=== PATIENT | female | born 1965 | race Two or more races ===

== ENCOUNTER → 2018-08-30 16:22 | Outpatient (CLI) | payer BC, SELFPAY ==
[2018-09-03 13:21] LABS: HPV Reflexed? NOT INDICATED
--- OUTSIDE RECORDS SUMMARY | 2018-11-04 11:51 | XMS RPT_ITS ---
:1965 Author Organization OHIP Care Team Providers Name Role Phone Mariya Vasquez Attending Unavailable Blaine Butler Referring Unavailable Blaine Butler Primary Care Unavailable CATERINA VILLA Referring Unavailable PROVIDER, UNKNOWN Admitting Unavailable PROVIDER, UNKNOWN Attending Unavailable BLAINE BUTLER Primary Care Unavailable PROVIDER, UNKNOWN Admitting Unavailable PROVIDER, UNKNOWN Attending Unavailable BLAINE BUTLER Primary Care Unavailable Mariya Vasquez Attending Unavailable Mariya Vasquez Referring Unavailable PROBLEMS PROBLEMS DATE TYPE CONDITION / ATTENDING STATUS SOURCE CODE 08/30/2018 Unknown Z12.4 - Mariya Vasquez Active [place] Encounter for Community screening for Hospital malignant Repository neoplasm of cervix / Z12.4(ICD-10) 05/31/2018 Active Unknown / NA Active [facility] UNK(Unknown) Other [facility] Repository 10/04/2017 Admitting Encntr screen Mariya Vasquez Active [facility] Diagnosis mammogram for System malignant Repository neoplasm of breast / Z12.31(ICD-10) PROCEDURES PROCEDURES No Procedure Records FoundRESULTS RESULTS PAP I-G W/RFX HRHPV Collected: 08/30/2018 Status: F Source: [facility] 10:45 [facility] Order Comment: CYTOLOGY INFORMATION: - CLINICAL INFORMATION: - DATE LMP/MENOPAUSE: 06/28/18 LMP - COLLECTION VIAL: Thin Prep Vial - ORTHODONTIST VICE PRESIDENT SOURCE: CERVICAL/ENDOCERVICAL - COLLECTION TECHNIQUE: BRUSH/SPATULA Specimen Comment: [id number] Specimen Comment: Source.............Cervix;Endocervix Specimen Comment: LMP / Prev Treat...[id number] Specimen Comment: No. of containers..01 ThinPrep Vial TYPE CODE TESTS RESULT OUT OF RANGE REFERENCE UNITS LAB L7400.0800 . Normal DIAGN Comment Result Comment: NEGATIVE FOR INTRAEPITHELIAL LESION OR MALIGNANCY. LAB L7400.0900 . Normal ADEQ Comment Result Comment: Satisfactory for evaluation. Endocervical and/or squamous metaplastic cells (endocervical component) are present. LAB L7400.1400 . Normal PERFORM Comment Result Comment: Emmie Earl, Nursing Educator LAB L7400.2575 . Normal TEST METHOD Comment Result Comment: This liquid based ThinPrep(R) pap test was screened with the use of an image guided system. LAB L7400.2600 . Normal . COMM LAB L7400.2700 . Normal PAPSMR Comment Result Comment: The Pap smear is a screening test designed to aid in the detection of premalignant and malignant conditions of the uterine cervix. It is not a diagnostic procedure and should not be used as the sole means of detecting cervical cancer. Both false-positive and false-negative reports do occur. LAB L7400.2800 . Normal HPV RFLX Comment Result Comment: The HPV DNA reflex criteria were not met with this specimen result therefore, no HPV testing was performed. Performed at: [address] [id number] [place] Repairer: Karen Guadalupe MD, Phone: [phone] Performed By: #### L7400.0350 #### [facility] (refer to report for specific site) refer to report for address and phone number XR ASP/INJ HIP Observed: 05/31/2018 Status: F Source: YUSUF MCKENZIE/VERA JARVIS 9:02 AM CLINIC OTHER CAMPUS REPOSITORY * * *Final Report* * * DATE OF EXAM: May 31 2018 9:02AM MDX 5715 - XR ASP/INJ HIP MAGALY/VERA JARVIS / PROCEDURE REASON: arthritis left hip M19.90 * * * * Physician Interpretation * * * * HISTORY: Left hip pain, osteoarthritis TECHNIQUE: Pre-procedure Sign-in: Safety Checklist Performed: Yes. The team confirmed the correct patient, correct site, site marking, correct procedure, and correct position. Timeout Time: 8:30 Sign-out: Communication performed: Yes. Fluoroscopic Radiation Summary: Plane A, Air Kerma: 7.0 mGy Dose Area Product (DAP): 1385.0 mGy*cmS2 Fluoro time: 0:18 min:sec COMPARISON: None RESULT: 22-gauge spinal needle tip was placed into the synovial space of the left hip under guidance of fluoroscopy, verified by injection of a small amount of Omnipaque 240 contrast material, recorded on permanent radiographs. 2 mL of 0.25% bupivacaine and 2 mL of Kenalog were injected. IMPRESSION: Left hip injection. Relief Map Modeler: PSCB Transcribe Date/Time: May 31 2018 12:52P Dictated by : EMILI TAYLOR MD This examination was interpreted and the report reviewed and electronically signed by: EMILI TAYLOR MD on May 31 2018 12:54PM EST [id number] MG BREAST TOMOSYNTHESIS Observed: 10/04/2017 Status: F Source: [facility] BL 12:00 AM SYSTEM REPOSITORY Patient Name: KARSTEN CONNOLLY Mammography Exam Date/Time 10/04/2017 08:45:30 EST Exam MG Breast Tomosynthesis BI Scr Ordering Physician MD VASQUEZ ANNE M Accession Number [id number] CPT4 Codes 97457 (MG Breast Tomosynthesis Scr Bl), 41358 (MG MAMMO 2D SCREENING) Reason For Exam screening Report PATIENT HISTORY: Patient has history of nonmelanoma skin cancer at age 41 and had first child at age 35. Family history of prostate cancer at age 70 in father. Took hormonal contraceptives for 20 years. Patient has never smoked. Patient's BMI is 28.1. TIME SINCE LAST MAMMOGRAM: Last mammogram was performed 1 year and 3 months ago. REASON FOR EXAM: screening, asymptomatic. PROCEDURE: MG BREAST TOMOSYNTHESIS BL SCR: OCTOBER 04, 2017 - 2D/3D Procedure 3D Bilateral CC and MLO view(s) were taken. 2D Bilateral CC and MLO view(s) were taken. Prior study comparison: June 21, 2016, bilateral screening mammogram performed at [facility]. April 24, 2015, bilateral screening mammogram performed at [facility]. There are scattered fibroglandular densities. No suspicious masses, architectural distortions or suspiciously clustered microcalcifications are identified within the right or left breast. There is no evidence of skin thickening or nipple retraction. There are no significant changes when compared with prior studies. Markings on images: BB's = Nipples; skin lesions Open [place] = Palpable Line = Scar 2D digital mammography and tomosynthesis imaging were performed and reviewed with CAD. ASSESSMENT: Category 1 Negative No mammographic evidence of malignancy. RECOMMENDATION: Routine screening mammogram of both breasts in 1 year. Cancer Risk Assessment: This risk assessment is based on patient provided information collected in a risk survey taken at the time of this examination. 5 year breast cancer risk is 2.1% - if greater than or equal to 1.7%, recommend discussion regarding the significance of these results and options for possible risk reduction. Lifetime breast cancer risk: 17.3% - If greater than or equal to 20%, consider annual mammogram and annual screening Breast MRI or follow up in high risk clinic. Is the patient at elevated risk based on the HBOC criteria? No (Hereditary Breast and Ovarian Cancer) - If yes, consider genetic counseling and testing with high risk follow up. HNPCC mutation risk (Joaquin Syndrome): 1% - if greater than or equal to 5%, consider genetic counseling, testing and screening colonoscopy. Final Signed Date and Time: 10/04/2017 12:20 pm Signed by: DO KHANNA ALFRED ALLERGIES ALLERGIES DATE TYPE / CODE NAME / CODE REACTION SEVERITY SOURCE Drug NO KNOWN [facility] Class/24592 ALLERGIES Other [facility] 1003(SNOMED Repository CT) ENCOUNTERS ENCOUNTERS ADMIT/DISCHARGE ACCOUNT NUMBER ADMITTING ENCOUNTER LOCATION SOURCE CLASS 08/30/2018 [id number] Ambulatory [facility] ding:LABSPEC Repository 06/14/2018/06/14/20 [id number] Unknown [facility] Repository 05/31/2018 [id number] Ambulatory [facility] Repository 03/13/2018/03/13/20 [id number] Unknown [facility] Repository 10/04/2017 [id number] Ambulatory [facility] System Repository PAYERS PAYERS ENCOUNTER GUARANTOR PAYER SUBSCRIBER SOURCE 08/30/2018 [facility] MAXWELLD[facility] y Number: [id number] Repository [place] [id number]: . Date:[id number] [address] () [address], [place] [address]LJ: 08/30/2018 [facility]SELF [facility]Y Hospital INSURANCEPolicy Repository Number: Effective Date:2018-08-30 06/14/2018 [facility] MAXWELLDOB: Insurance:BLUE MAXWELLDOB: System Repository CROSS/O,PPO,POSPoli [id number] [facility] cy Number: [place] [id number] [place] [address]Wzs: (330) Date:2016-08-14 04763 [phone] () 03/13/2018 [facility] MAXWELLDOB: Insurance:BLUE MAXWELLDOB: System Repository CROSS/HMO,PPO,POSPoli [id number] [facility] cy Number: [place] [id number] [place] [address]Jwy: (330) Date:2016-08-14 15811 [phone] () 10/04/2017 [facility] MaxwellDOB: Insurance:[place] Blue MaxwellDOB: System Repository [facility] [id number] [facility] ShieldPolickaren Number: ANABELLE Horner Effective Date: [address]Ypz: ()
--- OUTSIDE RECORDS SUMMARY | 2018-11-04 11:51 | XMS RPT_ITS ---
:1965 Author Organization [employer] Address [facility] [place] [address] Phone Care Team Providers Name Role Phone Marta BROWN, Edd Gregorio Reason for Visit Reason For Visit Description Start Date New - 1st visit with practice Preliminary reason for visit data, not yet signed by the author as of left hip pain Preliminary reason for visit data, not yet signed by the author as of Chief Complaint Chief Complaint Description Start Date left hip pain Preliminary chief complaint data, not yet signed by the author as of Instructions Instruction Description Start Date Patient advised to follow-up with Primary Care Physician for BMI management. Plan of Care Type Date Detail Appointment 09:30 AM Edd Lozano MD, [address] [facility], [place], [address], Pending order XR PELVIS W HIP 1 VIEW-LT Pending order Intra-articular Left Hip injection under Fluoro Medications Medication Instructions Start Stop Generic Name NDC Provider Date Date ADVIL 200 MG 2 tablets as / IBUPROFEN 32618312335 Erica Pulido TABS needed for pain 07 EDGE BANDER OPERATOR ALPRAZOLAM 1 1 tablet daily / ALPRAZOLAM 87544967145 Erica Pulido MG TABS as needed 20 EDGE BANDER OPERATOR STRATTERA 40 1 capsule daily / ATOMOXETINE HCL 01280231949 Erica Pulido MG CAPS 20 EDGE BANDER OPERATOR LEXAPRO 20 MG 1 tablet daily / ESCITALOPRAM 44096297992 Erica Pulido TABS 19 OXALATE EDGE BANDER OPERATOR TRAMADOL HCL 1 tablet every 6 / TRAMADOL HCL 79380596980 Erica Pulido 50 MG TABS hours as needed 01 EDGE BANDER OPERATOR ZORVOLEX 35 MG 1 capsule up to 96247286225 Erica Pulido CAPS three times 01 EDGE BANDER OPERATOR daily Conditions or Problems Problem Name Problem Onset Status Entry Provider Comment Standard Annotate Code Date Date Description Cervical 17093312 Active Mona Myles Cervical left upper radiculopathy (SNOMED 04/04 04/[address] [place] [address]) PA-C Risk for 391957717 Active Edd Vasquez At risk for falls (SNOMED 05/[address]) Herniated 278495863 Active Edd Vasquez Prolapsed cervical disc (SNOMED 04/25 04/[address]) intervertebral disc without myelopathy Degenerative 70396320 Active Edd Vasquez Degeneration of cervical disc (SNOMED 04/25 04/[address]) intervertebral disc Impingement 643120422 Active Edd Vasquez Impingement syndrome, (SNOMED 04/04 04/04 [place] syndrome of shoulder, CT) shoulder region left Obesity 735007164 Active Edd Vasuqez Obesity (SNOMED 09/07 09/[address]) 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 Edd Vasquez 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 (SNOMED 09/05 09/[address] [place] [address]) Lumbar disc 995197349 Active Edd Vasquez Lumbar disc herniation (SNOMED 09/05 09/05 [place] prolapse with with CT) radiculopathy radiculopathy Arthritis of 00253275 Active Edd Vasquez Arthritis of hip left hip (SNOMED 09/05 09/[address]) Allergies, Adverse Reactions, Alerts Observed no known allergies at Social History Concept Description Observation Name Observation Value Units Start Date Employment detail OCCUPATION#1 Video Production Assistant Preliminary social history data, not yet signed by the author as of Vital Signs Date Name Value Unit Description BMI (Body Mass 27.54 kg/m2 Body Mass Index Index) [Ratio] Preliminary vital sign data, not yet signed by the author as of BP Diastolic 84 mm[Hg] blood pressure, diastolic Preliminary vital sign data, not yet signed by the author as of BP Systolic 120 mm[Hg] blood pressure, systolic Preliminary vital sign data, not yet signed by the author as of Heart Rate 84 /min pulse rate E&M Preliminary vital sign data, not yet signed by the author as of Height 66 [in_us] height E&M Preliminary vital sign data, not yet signed by the author as of Height 168 cm height in centimeters E&M Preliminary vital sign data, not yet signed by the author as of Weight Measured 170 [lb_av] weight E&M Preliminary vital sign data, not yet signed by the author as of Weight Measured 77 kg weight in kilograms E&M Preliminary vital sign data, not yet signed by the author as of Results Date Name Value Unit Range Flag Description Office Visit: New - 1st visit with practice, Rm: 7 MEDS REVIEW Done Documentation of current medications (procedure) Preliminary observation data, not yet signed by the author as of Preliminary observation data, not yet signed by the author as of Clinical Summary: Scanned ROS Summary ROS: Denies genitourinary review of systems, E&M ROS: GI Denies ROS gastrointestinal E&M ROS ENDO Denies endocrine ROS ROS MSK COMM Pain,Arthritis ROS Musculoskeletal comments ROS:MUSCSKEL Complains ROS musculoskeletal E&M ROS: PSYCH Denies ROS psychiatric E&M ROS HEME Denies ROS hematologic/lymphatic E&M ROS SKIN Denies ROS skin E&M ROS ENT Denies ROS ENT E&M ROS:GENERAL Denies ROS general E&M ROS: NEURO Denies ROS neurological E&M ROS:PULMON Denies ROS pulmonary E&M ROS: CARDIAC Denies ROS cardiovascular E&M Clinical Summary: HMSPatientID OOP account number Procedures Code Procedure Name Date Entry Date G8730 Pain assessment documented as positive - follow-up documented G8427 Current medications documented 1036F Tobacco screening was negative - non user G8417 BMI documented as above normal parameters - follow-up documented G8783 Blood pressure within normal parameters - no follow-up required [facility]-[id number] Patient Encounter Medications Administered No information available. Immunizations No information available. Advance Directives There may be information available, but it has not been provided by the sender. Assessments There may be information available, but it has not been provided by the sender. Review of Systems There may be information available, but it has not been provided by the sender. Family History There may be information available, but it has not been provided by the sender. History of Past Illness There may be information available, but it has not been provided by the sender. History of Present Illness There may be information available, but it has not been provided by the sender.
--- OUTSIDE RECORDS SUMMARY | 2018-11-04 11:51 | XMS RPT_ITS ---
:04/30/1949 Author Organization [employer] Address [address] [place] [address] A[place]BELLE ALARCON [address] Phone Care Team Providers Name Role Phone Teja To MD Reason for Visit Reason For Visit Description Start Date Postop - subsequent visit Preliminary reason for visit data, not yet signed by the author as of right shoulder post Removal of long stem fracture reverse placement of a custom antibiotic hemiarthroplasty spacer with gentamicin and vancomycin on 10/16/2017 Preliminary reason for visit data, not yet signed by the author as of Chief Complaint Chief Complaint Description Start Date right shoulder post Removal of long stem fracture reverse placement of a custom antibiotic hemiarthroplasty spacer with gentamicin and vancomycin on 10/16/2017 Preliminary chief complaint data, not yet signed by the author as of Instructions Instruction Description Start Date Please follow-up with Primary Care Physician or [employer] for treatment or adjustment of medication regarding elevated blood pressure.Patient advised to follow-up with Primary Care Physician for BMI management. Plan of Care Type Date Detail Appointment 10:45 AM Teja To MD, [address] [place] [address], [email or web address], [place], [address], Appointment 10:15 AM Teja To MD, [address] [place] [address], [email or web address], [place], [address], Appointment 10:45 AM Teja To MD, [facility], [email or web address], [place], [address], Pending order XR HUMERUS 2+ VWS-RT Patient education \cps-sql1\CPS_PtEducation\ht n.pdf Medications Medication Instructions Start Stop Generic Name NDC Provider Date Date ULTRAM 50 MG Take 1-2 / TRAMADOL HCL 88140882683 Teja R TABS tablets by 17 Yousuf BROWN mouth every 4 hours as needed for pain ASPIRIN 81 MG twice daily / ASPIRIN 09421112769 Edith TABS 14 Czyzyk PA-C PERCOCET 5-325 One every six / OXYCODONE-ACETAMI 39703052296 Edith MG TABS hours 14 NOPHEN Boubacar PA-C VITAMIN D3 47896 Take 1 capsule / CHOLECALCIFEROL 40349622041 Edith UNIT CAPS by mouth daily 14 Czyzwaldo for 5 days. EDITH-C Then take 1 capsule by mouth per week for 5 weeks LISINOPRIL-HYDRO takes one / LISINOPRIL-HYDROC 22771197640 Teja Vasquez CHLOROTHIAZIDE tablet daily 15 HLOROTHIAZIDE Yousuf BROWN 20-12.5 MG TABS ATENOLOL 25 MG takes 1 tablet / ATENOLOL 79145496029 Teja R TABS once a day 10 Yousuf BROWN IBUPROFEN 800 MG takes 1 tablet / IBUPROFEN 57618489526 Teja Vasquez TABS up to twice a 10 Yousuf BROWN day REQUIP 0.5 MG takes one / ROPINIROLE HCL 75254819260 Teja R TABS tablet at night 15 Yousuf BROWN BIOTIN 24966 MCG takes 1 tablet / BIOTIN 53248004486 Erica TABS once a day 10 Pulido SOLAR DEVELOPMENT ENGINEER LEVOTHYROXINE takes 1 tablet / LEVOTHYROXINE 88215037353 Erica SODIUM 125 MCG once a day 10 SODIUM Pulido SOLAR DEVELOPMENT ENGINEER TABS PANTOPRAZOLE takes 1 tablet / PANTOPRAZOLE 75365559395 Erica SODIUM 40 MG once a day 10 SODIUM Pulido SOLAR DEVELOPMENT ENGINEER TBEC TAMSULOSIN HCL takes 1 capsule / TAMSULOSIN HCL 53449991705 Erica 0.4 MG CAPS twice a day 10 Pulido SOLAR DEVELOPMENT ENGINEER Conditions or Problems Problem Name Problem Onset Status Entry Provider Comment Standard Annotate Code Date Date Description History of 418625371 Active Teja Vasquez History of hemiarthroplasty (SNOMED 11/28 11/28 Yousuf BROWN operative of right shoulder CT) procedure on shoulder Vitamin D 39915875 Active Edith Vitamin D deficiency (SNOMED 09/27 09/[address]) PA-C Other closed 650572214 Active Teja R Closed displaced fracture (SNOMED 09/28 09/28 Yousuf BROWN fracture of of distal end of CT) lower end of right humerus with humerus routine healing, subsequent encounter Closed displaced 81335551 Active Teja Vasquez Closed segmental fracture (SNOMED 08/20 08/20 Yousuf BROWN fracture of of shaft of right CT) shaft of humerus with humerus routine healing, subsequent encounter Status post 441055136 Active Teja Vasquez History of reverse (SNOMED Yousuf BROWN operative arthroplasty of CT) procedure on right shoulder shoulder Allergies, Adverse Reactions, Alerts Allergy Name Reaction Start Date Severity Status Provider Description MIRAPAX Critical Active Marques T Jordon PT SULFA Critical Active Erica Pulido SOLAR DEVELOPMENT ENGINEER Social History No information available. Vital Signs Date Name Value Unit Description BMI (Body Mass 32.90 kg/m2 Body Mass Index Index) [Ratio] Preliminary vital sign data, not yet signed by the author as of BP Diastolic 81 mm[Hg] blood pressure, diastolic Preliminary vital sign data, not yet signed by the author as of BP Diastolic 82 mm[Hg] blood pressure, diastolic, second observation Preliminary vital sign data, not yet signed by the author as of BP Systolic 151 mm[Hg] blood pressure, systolic Preliminary vital sign data, not yet signed by the author as of BP Systolic 153 mm[Hg] blood pressure, systolic, second observation Preliminary vital sign data, not yet signed by the author as of Heart Rate 60 /min pulse rate E&M Preliminary vital sign data, not yet signed by the author as of Height 64 [in_us] height E&M Preliminary vital sign data, not yet signed by the author as of Height 163 cm height in centimeters E&M Preliminary vital sign data, not yet signed by the author as of Weight Measured 191 [lb_av] weight E&M Preliminary vital sign data, not yet signed by the author as of Weight Measured 87 kg weight in kilograms E&M Preliminary vital sign data, not yet signed by the author as of Results Date Name Value Unit Range Flag Description Office Visit: Postop - subsequent visit, Rm: 32 MEDS REVIEW Done Documentation of current medications (procedure) Preliminary observation data, not yet signed by the author as of Preliminary observation data, not yet signed by the author as of Clinical Summary: HMSPatientID OOP account number Procedures Code Procedure Name Date Entry Date CPT-70455 Physical Therapy CPT-91823 XR HUMERUS 2+ VWS-RT G8730 Pain assessment documented as positive - follow-up documented G8427 Current medications documented 1036F Tobacco screening was negative - non user G8417 BMI documented as above normal parameters - follow-up documented G8950 Blood pressure outside of normal parameters - follow-up documented 5015F Fracture management ongoing care communicated [facility]-[id number] Patient Encounter Medications Administered No information available. [...]
== END ==
PROVIDERS: Referring Provider Obstetrics & Gynecology; Visit Provider Obstetrics & Gynecology
DX: Z12.4 Encounter for screening for malignant neoplasm of cervix (principal)
CPT/HCPCS: 88175; G0145

== ENCOUNTER → 2019-09-02 13:45 | Outpatient (CLI) | payer BC, SELFPAY ==
[2019-09-05 03:07] LABS: Age Gdln ACOG Testing 30-65 (.)
[2019-09-05 15:56] LABS: HPV APTIMA, High Risk Negative (Negative)
[2019-09-05 15:57] LABS: HPV Reflexed? YES, CHARGE PATIENT
== END ==
PROVIDERS: Visit Provider Obstetrics & Gynecology
DX: Z12.4 Encounter for screening for malignant neoplasm of cervix (principal)
CPT/HCPCS: 87624; 88175; G0145

== ENCOUNTER → 2020-02-20 | Outpatient (CLI) | payer BC, SELFPAY ==
--- NOTE | 2020-02-20 | CER_PTH ---
PATIENT: KARSTEN CONNOLLY LOC: [facility] U#:[id number] AGE/SX: 55/F ROOM: RE02/20/[address]: Dr. Tk Hough MD : 1965 BED: DIS: 02/20/2020 SPEC #: [id number] RECD: 02/21/20 08:40 STATUS: JACK NIRMALA #: [id number] SAVANAH: 02/20/20 00:[address]: Tk Hough DEPT: SURGICAL PATHOLOGY RECD BY: Deepak Mcclure Tissues: Uterine cervix, NOS Procedures: Surgery Specimen Level IV HEADER OPERATION: Polypectomy PRE-OP DIAGNOSIS: Cervical polyp / pain TISSUE SUBMITTED: Cervical polypectomy MICROSCOPIC DIAGNOSIS Cervical polyp, polypectomy: Inflamed, benign endocervical polyp. SJ:oj 02/24/20 MICROSCOPIC DESCRIPTION Slides are reviewed. GROSS DESCRIPTION Received in fixative is one container labeled with the patient's name and designated cervical polyp. The specimen consists of a piece of adamson-pink polyp measuring 1.2 x 1.3 x 0.6 cm. Also present are multiple fragments of adamson mucoid tissue. The polyp is bisected. The entire specimen is submitted in one cassette. / JANETH:oj 02/21/20 TC:5 CPT: 93089
== END | disposition home or self-care (01) ==
LOC: LABSPEC 13:58
PROVIDERS: Visit Provider Obstetrics & Gynecology
DX: N84.1 Polyp of cervix uteri (principal)
CPT/HCPCS: 88305

== ENCOUNTER 2021-11-02 13:26 | Outpatient (CLI) | payer BC, SELFPAY ==
[2021-11-08 15:58] LABS: HPV APTIMA, High Risk Negative (Negative)
== END 2021-11-02 23:59 | disposition home or self-care (01) ==
LOC: LABSPEC 13:30
PROVIDERS: Visit Provider Student in an Organized Health Care Education/Training Program
DX: Z12.4 Encounter for screening for malignant neoplasm of cervix (principal)
CPT/HCPCS: 87624; 88175; G0145

== ENCOUNTER → 2023-02-13 | Outpatient (CLI) | payer BC, SELFPAY ==
[2023-02-16 18:07] LABS: HPV APTIMA, High Risk Negative (Negative)
== END | disposition home or self-care (01) ==
LOC: LABSPEC 11:11
PROVIDERS: Visit Provider Student in an Organized Health Care Education/Training Program
DX: Z12.4 Encounter for screening for malignant neoplasm of cervix (principal)
CPT/HCPCS: 87624; 88175; G0145

== ENCOUNTER → 2023-03-14 | Outpatient (CLI) | payer BC, SELFPAY ==
--- NOTE | 2023-03-14 10:00 | EMB_PTH ---
PATIENT: KARSTEN CONNOLLY LOC: [facility] U#:[id number] AGE/SX: 58/F ROOM: RE03/14/[address]: Dr. Bebeto Valladares MD : 1965 BED: DIS: 03/14/2023 SPEC #: [id number] RECD: 03/14/23 11:35 STATUS: JACK NIRMALA #: [id number] SAVANAH: 03/14/23 10:[address]: Bebeto Valladares DEPT: SURGICAL PATHOLOGY RECD BY: Elizabeth Gonzalez Tissues: Endometrium, NOS Procedures: Surgery Specimen Level IV HEADER OPERATION: Endometrial biopsy PRE-OP DIAGNOSIS: N93.0 TISSUE SUBMITTED: Endometrial biopsy MICROSCOPIC DIAGNOSIS Endometrium, biopsy: Scant strips of benign superficial glandular mucosa. AM:oj 03/15/2023 MICROSCOPIC DESCRIPTION Slides are reviewed. GROSS DESCRIPTION Received in fixative is one container labeled with the patient's name and designated endometrial biopsy. The specimen consists of multiple fragments of hemorrhagic mucoid tissue that in aggregate measure 1.5 x 1.0 x 0.1 cm. The specimen is totally submitted in one cassette. / SJ:rg 03/14/2023 TC:5 CPT: 04543
== END | disposition home or self-care (01) ==
LOC: LABSPEC 11:20
PROVIDERS: Visit Provider Obstetrics & Gynecology
DX: N93.0 Postcoital and contact bleeding (principal)
CPT/HCPCS: 88305